=== PATIENT | male | born 1980 | race Caucasian/White ===

== ENCOUNTER → 2021-10-07 | Outpatient (CLI) | payer OTHER ==
--- NOTE | 2021-10-08 07:50 | XR ---
Left wrist HISTORY: Trauma and pain 4 views the left wrist Bone mineralization essentially maintained, possible cystic geode present within the lunate bone, foc al lucency is noted. No evident fracture or dislocation. Alignment and joint spaces are maintained. IMPRESSION: No acute abnormality. Consider wrist MRI for persistent symptoms.
== END | disposition home or self-care (01) ==
LOC: RADXRMAIN 14:30
PROVIDERS: ATTEND Family Medicine
DX: S69.92XA Unspecified injury of left wrist, hand and finger(s), initial encounter (principal); M25.532 Pain in left wrist

== ENCOUNTER → 2024-12-12 | Outpatient (CLI) | payer BC ==
--- NOTE | 2024-12-13 08:58 | MR ---
INDICATION: Patient age:Male; 44 years old; Reason for study: M54.2; H. COMPARISON: Cervical spine radiograph 12/11/2024. TECHNIQUE: Multi planar, multi sequence imaging was performed of the cervical spine. No Gadolinium wa s given. FINDINGS: Alignment: The cervical vertebral bodies have preserved heights. Grade 1 retrolisthesis of C5 on C6 a nd C6 on C7. Slight reversal of the normal cervical lordosis. Bones: Bone signal is within normal limits. Cord: Increased T2 hyperintense signal identified within the central spinal cord at the C5 level. Discs: Multilevel disc desiccation is present. Mild disc height loss at C4-C5 and C5-C6. C2-C3: No significant disc pathology. The spinal canal is patent. No neural foraminal stenosis. C3-C4: No significant disc pathology. The spinal canal is patent. No neural foraminal stenosis. C4-C5: Eccentric left disc bulge with mild effacement of the anterior thecal sac. Mild spinal canal s tenosis. Uncovertebral joint hypertrophy. Mild to moderate left and mild right neural foraminal steno sis. C5-C6: Broad-based disc bulge with uncovertebral joint hypertrophy. Moderate spinal stenosis with the disc abutting the ventral spinal cord. Moderate left and severe right neural foraminal stenosis. C6-C7: Eccentric right disc bulge. Minimal effacement of the anterior thecal sac. No significant spin al canal stenosis. Uncovertebral joint hypertrophy. The left neural foramen is patent. Mild 2 moderat e right neural foraminal stenosis. C7-T1: No significant disc pathology. The spinal canal is patent. No neural foraminal stenosis. Other: None. IMPRESSION: Multilevel disc degeneration with associated osteoarthritic changes as described above. Moderate spin al canal stenosis at C5-C6 with increased signal within the spinal cord at C5 concerning for compress lela myelopathy. Grade 1 retrolisthesis of C5 on C6 and C6 on C7. Slight reversal of the normal cervical lordosis. [facility], , 12/13/2024 8:56 AM
== END | disposition home or self-care (01) ==
LOC: RADMRIMAIN 20:15
PROVIDERS: ATTEND Orthopaedic Surgery
DX: M48.02 Spinal stenosis, cervical region (principal); M43.12 Spondylolisthesis, cervical region; M50.323 Other cervical disc degeneration at C6-C7 level
CPT/HCPCS: 72141